=== PATIENT | male | born 1970 | race Caucasian/White ===

== ENCOUNTER 2017-01-08 17:12 | Emergency (ER) | payer OTHER ==
[2017-01-08 17:40] LABS: BASOPHIL 0.3 % (0-2); HCT 46.7 % (42.0-52.0); HGB 15.9 g/dl (13.2-18.0); LYMPHOCYTE 11.1 % (15-48); MCH 29.8 pg (25.0-31.0); MCV 87.6 fL (78.0-100.0); MONOCYTE 8.3 % (0-12); MPV 9.9 fL (6.0-9.5); NEUTROPHIL 79.3 % (41-80); PLT 208 K/uL (150-400); RBC 5.33 M/uL (4.70-6.00); WBC 11.6 K/uL (4.0-10.5)
[2017-01-08 17:50] LABS: INR 1.17 (0.9-1.2); PROTHROMBIN TIME 14.5 SECONDS (11.7-14.0); PTT 28.5 SECONDS (23.2-31.4)
[2017-01-08 17:59] LABS: CKMB 2.09 ng/mL (0.97-4.94); TROPONIN T 0.011 ng/mL
[2017-01-08 18:00] LABS: ALBUMIN 4.4 g/dL (3.5-5.0); BILIRUBIN - TOTAL 1.2 mg/dL (0.1-1.0); CREATININE 0.9 mg/dL (0.7-1.2); GLOBULIN (CALCULATION) 2.7 g/dL (2.2-4.2); MAGNESIUM 2.75 mg/dL (1.40-2.10); POTASSIUM 4.2 mmol/L (3.5-5.1); TOTAL PROTEIN 7.1 g/dL (6.4-8.3)
== END 2017-01-08 20:57 | disposition home or self-care (01) ==
LOC: FER 17:12
PROVIDERS: Emergency Medicine
DX: R09.1 Pleurisy (principal); I25.10 Atherosclerotic heart disease of native coronary artery without angina pectoris; I48.91 Unspecified atrial fibrillation; F17.210 Nicotine dependence, cigarettes, uncomplicated; Z79.01 Long term (current) use of anticoagulants; Z79.899 Other long term (current) drug therapy; Z95.5 Presence of coronary angioplasty implant and graft
CPT/HCPCS: 36415; 71010; 71275; 80053; 82550; 82553; 83735; 83874; 83880; 84484; 85025; 85610; 85730; 93005; J1644; Q9967